=== PATIENT | female | born 1975 | race Caucasian/White ===

== ENCOUNTER 2019-06-22 17:59 | Emergency (ER) | payer OTHER ==
--- NOTE | 2019-06-22 18:15 | ED Physician Documentation ---
Lower Extremity Problem - HISTORIAN Historian: patient - HPI Stated Complaint: right knee pain x 2 weeks Chief Complaint: Lower Extremity Problem Location of Injury: R knee Timing: pain lasting Duration: intermittent episodes Where: home Severity: moderate (01/09) Quality: pain. denies: swelling, tenderness, numbness, tingling Exacerbated By: walking, movement Relieved By: rest Further Comments: yes (she states she has had right lateral knee pain x 2 weeks . She does not recall injury. She has tried OTC meds with relief and when she is resting she is feeling less pain. She has pain increased with walking or standing. No swelling. She denies any change in her sensation or ROM.) - ROS CONST: no problems MS/SKIN/LYMPH: none - PAST HX Past History: none Allergies/Adverse Reactions: Allergies Allergy/AdvReac Type Severity Reaction Status Date / Time aspirin Allergy Verified 06/22/19 18:13 Penicillins Allergy Verified 06/22/19 18:13 ranitidine HCl [From Zantac] Allergy Verified 06/22/19 18:13 Sulfa (Sulfonamide Allergy Verified 06/22/19 18:13 Antibiotics) [Sulfa(Sulfonamide Antibiotics)] Home Medications: Ambulatory Orders Medication Instructions Recorded NK 10/20/15 - SOCIAL HX Smoking History: cigarettes Alcohol Use: none Drug Use: none - FAMILY HX Family History: none - VITAL SIGNS Vital Signs: Vital Signs Temp Pulse Resp BP Pulse Ox 98.2 F 87 20 144/90 97 06/22/19 18:05 06/22/19 18:05 06/22/19 18:05 06/22/19 18:05 06/22/19 18:05 - REVIEWED ASSESSMENTS Nursing Assessment Reviewed: Yes Vitals Reviewed: Yes ED Results Lab/Radiology - Orders Orders: ED Orders Category Date Time Status KNEE 3 VIEWS [RAD] Stat Exams 06/22/19 Completed Ketorolac Tromethamine [Toradol] Med 06/22/19 18:43 Discontinued 60 mg IM NOW ONE Lower Extremity Problem - EXAM General Appearance: no distress Knees: right: bone tenderness, pain, bilateral: non-tender, normal inspection, normal range of motion, N/A: joint effusion, nodules, soft tissue tenderness, swelling RESPIRATORY: no resp distress, chest non-tender, breath sounds normal CVS: reg rate & rhythm, heart sounds normal, equal pulses, no murmur JOINT: joints nml, nml ROM, painful (right knee pain ) VASCULAR: no vascular compromise, pulses full/equal NEURO/PSYCH: oriented X3 SKIN: warm/dry, normal color BACK: normal inspection Discharge Clincal Impression: Right knee pain Qualifiers: Chronicity: acute Qualified Code(s): M25.561 - Pain in right knee Referrals: Primary Doctor,No [Primary Care Provider] - 2 Days Comments: 1. Continue OTC meds as directed as needed for pain 2. Ice and elevate 3. Follow up with PCP in 2-4 days for possible MRI 4. Return to ER for any increased concerns Condition: Stable Disposition: 01 HOME, SELF-CARE Decision to Admit: NO Date of Decison to Admit: 06/22/19 Decision Time: 18:56
[2019-06-22 18:23] VITALS: BP 144/90
--- NOTE | 2019-06-22 18:42 | Diagnostic Imaging Report ---
PATIENT MR#: [id number] PATIENT PATIENT NAME: JAMEE SUTHERLAND DATE OF : 1975 REFERRING PHYSICIAN: Karoline Reis EXAM DATE: 06/22/2019 ACCESSION NUMBER: [id number] EXAM DESCRIPTION: KNEE 3 VIEWS Right knee, three views. History: Right knee pain no known injury Findings: The osseous structures are intact without acute fracture. The joint space and alignment are normal. There is no soft tissue swelling. No knee joint effusion. Impression: 1. No acute osseous abnormality. Read by: Dr. Roe Mendez Transcribed by: Transcribed Date: Electronically signed by: Dr. Roe Mendez Date signed: 06/22/2019 6:40:59 PM
[2019-06-22] MEDS ORDERED: KETOROLAC TROMETHAMINE 60 MG/2 ML VIAL IM ONE (18:43)
== END 2019-06-22 19:03 | disposition home or self-care (01) ==
LOC: ED 17:59
DX: M25.561 Pain in right knee (principal)
CPT/HCPCS: 73562; 96372; 99282; 99284; J1885